=== PATIENT | female | born 1960 | race Caucasian/White ===

== ENCOUNTER 2018-05-25 04:50 | Inpatient (IN) ==
[2018-05-20 12:13] LABS: Appearance,Urine CLEAR; Bilirubin,Urine NEG (NEG); Color,Urine YELLOW; Glucose,Urine (UA) NEGATIVE (NEG); Leukocyte Esterase,Urine NEG /uL (NEG); Protein,Urine NEG (NEG); Specific Gravity,Urine 1.017 (1.000-1.035); Urine Blood NEG mg/dL (<0.03); Urobilinogen,Urine NEG (NEG)
[2018-05-20 12:54] LABS: Basophils # (Auto) 0 K/mcL (0.0-0.3); Basophils % (Auto) 0.5 % (0.0-2.0); Eosinophils # (Auto) 0.1 K/mcL (0.0-0.7); Eosinophils % (Auto) 1.2 % (0.0-7.0); Granulocytes % (Auto) 51.5 % (38.0-78.0); Lymphocytes # (Auto) 3.1 K/mcL (1.5-4.8); Lymphocytes % (Auto) 34.3 % (15.5-49.0); Mean Cell Volume 93.4 fL (80.0-100.0); Mean Corpuscular HGB Conc 33.4 g/dL (31.0-36.0); Monocytes # (Auto) 1.1 K/mcL (0.1-0.9); Monocytes % (Auto) 12.5 % (1.0-12.0); Platelet Count 263 K/mcL (140-440); RBC 4.33 M/mcL (4.00-5.20); Red Cell Distribution Width 12.4 % (11.5-14.5)
[2018-05-20 13:23] LABS: Blood Urea Nitrogen 16 mg/dl (6-20)
[2018-05-25] MEDS ORDERED: 0.9 % SODIUM CHLORIDE 9 ML, KETOROLAC 30 MG, ROPIVACAINE HCL/PF 49.5 ML, EPINEPHrine 0.... IJ SCH (06:00)
[2018-05-25] MEDS ORDERED: oxyCODONE 10 MG TAB.ER.12H PO SCH (06:00)
[2018-05-25] MEDS ORDERED: ceFAZolin 2 GM in DEXTROSE 5% IN WATER 50 ML IV SCH (06:00)
[2018-05-25] MEDS ORDERED: CELECOXIB 200 MG CAPSULE PO SCH (06:00)
[2018-05-25] MEDS ORDERED: PREGABALIN 75 MG CAPSULE PO SCH (06:00)
[2018-05-25] MEDS ORDERED: PROPOFOL 200 MG/20 ML VIAL IV ONE (07:35)
[2018-05-25] MEDS ORDERED: TRANEXAMIC ACID 1,000 MG/10 ML VIAL IV ONE (07:35)
[2018-05-25] MEDS ORDERED: DEXAMETHASONE 4 MG/ML VIAL IV ONE (07:35)
[2018-05-25] MEDS ORDERED: MIDAZOLAM 2 MG/2 ML VIAL IV ONE (07:35)
[2018-05-25] MEDS ORDERED: ROPIVACAINE HCL/PF 20 ML VIAL IJ ONE (07:35)
[2018-05-25] MEDS ORDERED: LIDOCAINE HCL/PF 100 MG/5 ML SYRINGE IV ONE (07:35)
[2018-05-25] MEDS ORDERED: ePHEDrine 50 MG/ML AMPUL IV ONE (07:35)
[2018-05-25] MEDS ORDERED: ONDANSETRON 4 MG/2 ML VIAL IV ONE (07:35)
[2018-05-25] MEDS ORDERED: GENTAMICIN SULFATE 800 MG/20 ML VIAL IR ONE (08:20)
[2018-05-25] MEDS ORDERED: METHOCARBAMOL 750 MG TABLET PO PRN (09:27)
[2018-05-25] MEDS ORDERED: MAGNESIUM HYDROXIDE 30 ML ORAL.SUSP PO PRN (09:27)
[2018-05-25] MEDS ORDERED: POLYETHYLENE GLYCOL 3350 17 GM PACKET PO PRN (09:27)
[2018-05-25] MEDS ORDERED: TRANEXAMIC ACID 1,000 MG/10 ML VIAL IV SCH (09:27)
[2018-05-25] MEDS ORDERED: BISACODYL 10 MG SUPP.RECT PR PRN (09:27)
[2018-05-25] MEDS ORDERED: ONDANSETRON 4 MG ODT TABLET SL PRN (09:27)
[2018-05-25] MEDS ORDERED: ONDANSETRON 4 MG/2 ML VIAL IV PRN ×2 (09:27→09:34)
[2018-05-25] MEDS ORDERED: FLEETS ADULT ENEMA PR PRN (09:27)
[2018-05-25] MEDS ORDERED: BENZOCAINE/MENTHOL 1 LOZENGE PO PRN (09:27)
--- NOTE | 2018-05-25 09:27 | Brief Operative Note ---
Pre-op diagnosis: right knee painful tka Post-op diagnosis: same Procedure: revision tibial component right tka Grafts/Implants: Yes Anesthesia: spinal Findings: tibial component not bound to cement, no evidence infection Complications: none Surgeon: Clay Payne Track Superintendent: Estefany Mcintosh Estimated blood loss (cc): 150 Tourniquet Time (Minutes): 71 Specimens Removed/Pathology: other (frozens and cultures) Condition: stable Disposition: PACU
[2018-05-25] MEDS ORDERED: IPRATROPIUM/ALBUTEROL 3 ML AMPUL.NEB NEB PRN ×2 (09:34→09:36)
[2018-05-25] MEDS ORDERED: NALOXONE HCL 0.4 MG/ML VIAL IV PRN (09:34)
[2018-05-25] MEDS ORDERED: METHOCARBAMOL 1,000 MG/10 ML VIAL IV PRN (09:34)
[2018-05-25] MEDS ORDERED: FLUMAZENIL 0.1 MG/ML ML IV PRN (09:34)
[2018-05-25] MEDS ORDERED: MEPERIDINE 25 MG/ML SYRINGE IV PRN (09:34)
[2018-05-25] MEDS ORDERED: LACTATED RINGERS 250 ML IV PRN (09:34)
[2018-05-25] MEDS ORDERED: fentaNYL 100 MCG/2 ML VIAL IV PRN (09:34)
[2018-05-25] MEDS ORDERED: KETOROLAC 30 MG/ML VIAL IV PRN (09:34)
[2018-05-25] MEDS ORDERED: ACETAMINOPHEN 1,000 MG/100 ML BOTTLE IV ONE (09:36)
[2018-05-25] MEDS ORDERED: LACTATED RINGERS 1,000 ML IV SCH (09:45)
--- NOTE | 2018-05-25 10:13 | XRay Report ---
CLINICAL INFORMATION: Postsurgical follow-up TECHNIQUE: Portable AP and crosstable lateral right knee COMPARISON: None. FINDINGS: Status post right total knee arthroplasty. Femoral and tibial components are in anatomic positions. There is postsurgical soft tissue and intra-articular gas IMPRESSION: Status post right knee replacement Interpreted and Authenticated by: Clay Moe 05/25/18
[2018-05-25] MEDS: KETOROLAC 15 MG/ML VIAL IV SCH ×3 (11:33→23:31)
[2018-05-25] MEDS: 0.9 % SODIUM CHLORIDE 1,000 ML IV SCH ×3 (11:36→23:35)
[2018-05-25] MEDS: 0.9 % SODIUM CHLORIDE 10 ML SYRINGE IV SCH ×2 (13:00→23:31)
--- NOTE | 2018-05-25 14:21 | Operative Note ---
DATE OF OPERATION: 05/25/2018 PREOPERATIVE DIAGNOSIS: Painful right total knee arthroplasty with possible tibial loosening. POSTOPERATIVE DIAGNOSIS: Painful right total knee arthroplasty with possible tibial loosening. PROCEDURE: Revision right total knee arthroplasty of tibial component. SURGEON: Ruben Payne M.D. TOP LIFT NAILER SURGEON: Estefany Mcintosh PA-C ANESTHESIA: Spinal with LMA assist. ESTIMATED BLOOD LOSS: 150 mL COMPLICATIONS: None noted. SPECIMENS REMOVED: Frozen section x3 to pathology, cultures x2. DRAINS: None. TOURNIQUET TIME: 71 minutes at 300 mmHg. IMPLANTS: DePuy AttZenops tibial base rotating platform size 3 revision cemented, DePuy AttZenops revision tibial sleeve Porocoat fully coated 29 mm, DePuy AttZenops revision pressfit stem 12 x 80, DePuy tibial insert rotating platform posterior stabilized size 4, 10 mm AOX, DePuy CMW 2 gentamycin bone cement 20 grams x2. INDICATIONS: The patient had a previous total knee arthroplasty. She did well initially, but then had increasing pain in the knee. She had pain around the tibia primarily and some loosening of the ligaments with instability in the knee, and radiographs confirmed some possible loosening around the tibial component. After a long discussion about treatment options, the patient elected to proceed with a revision total knee arthroplasty of the tibial component and evaluation of the remainder of the knee. The risks and benefits were discussed with the patient in detail including, but not limited to, the risks of anesthesia, problems with the heart or lungs related to anesthesia, infection, compromise or injury to the nerves and blood vessels, deep venous thrombosis, pulmonary embolism, pneumonia, continued pain after surgery, worsening pain or symptoms after surgery, swelling, loss of motion, instability, leg length discrepancy, and need for repeat surgery. DESCRIPTION OF PROCEDURE: The patient was seen in the pre-anesthesia waiting room where all questions were answered and the correct side and site were identified and marked. The patient was transferred to the operating room and administered the anesthetic and given pre-operative antibiotics. A time-out was then called. The extremity was prepped and draped, exsanguinated, and the tourniquet was inflated to 300 mmHg. A midline skin incision was then made with a standard medial parapatellar arthrotomy. I removed scar tissue in the suprapatellar pouch and infrapatellar recess. We visualized the knee. We took initial cultures from the fluid and then cultures from the tibia. I then removed the polyethylene liner and visualized this, which appeared appropriate. We repositioned the tissue around the femoral and tibial components and visualized both. Neither component was loose. I used a punch and both components were solid on exam. The femur was solid all the way through and because of the pain in the tibia I used a flexible osteotome and started to osteotome around the base of the tibia. This made it pop off easily and there was not any significant attachment of cement to the tibial component. At this point I used a cement splitter as well as multiple osteotomes to remove all the cement from the tibia. The patella was visualized and intact, normal, and left in place. I took three frozen specimens, one from the canal of the tibia; one from the bone underlying the tibial component; and the third from the soft tissues underneath the patellar tendon. These were sent and had no WBC/HPF. Once all the cement was removed, I then broached the tibia, reamed and confirmed this at our 12. We used a trial sleeve and went up to 29 mm. We used the referencing block and cut a small wafer of bone off the proximal tibia. I then placed this with a rotating platform and sized at a 10 mm thickness with excellent motion including full flexion and extension, stable to anterior and posterior drawer as well as medial and lateral varus valgus stress. I then removed all the components. We visualized and confirmed our rotation. We then placed the final Attune tibial base rotating platform size 3 cemented with a revision pressfit stem 12 x 60 as well as the tibial sleeve Porocoat fully coated. I cemented the base of the plate only. We then placed the final tibial Attune rotating platform posterior stabilized size 4, 10 mm AOX. I removed all the excess cement and irrigated completely. Irrigation with 3 liters of antibiotic saline was then performed using jet-lavage and IrriSept. We let the tourniquet down and coagulated bleeding vessels. We injected a 100 cubic centimeter volume including Ropivacaine 49.25 cubic centimeters at 5 milligrams per cubic centimeter, Ketorolac 30 milligrams, and Epinephrine 0.5 milligrams into 100 cubic centimeters volume of normal saline. We closed the retinaculum with #2 Stratafix and #0 Vicryl. We closed the subcutaneous tissue and skin in layers out to Dermabond on the skin. A sterile pressure dressing was applied. All needle and sponge counts were correct. The patient was transferred to the recovery room in stable condition. JBe:[email or web address] Job ID: [id number] Doc ID: [id number] Ruben Payne MD
[2018-05-25] MEDS: ceFAZolin 1 GM VIAL IV SCH ×2 (15:29→23:31)
[2018-05-25] MEDS: HYDROcodone/APAP 10/325MG TABLET PO PRN ×2 (15:29→21:13)
[2018-05-25] MEDS ORDERED: SENNOSIDES 1 TABLET PO SCH (21:00)
[2018-05-25] MEDS: DOCUSATE SODIUM 100 MG CAPSULE PO SCH (21:13)
[2018-05-25] MEDS: ASPIRIN 325 MG ENTERIC COATED TABLET PO SCH (21:13)
[2018-05-26] MEDS: 0.9 % SODIUM CHLORIDE 10 ML SYRINGE IV SCH (05:57)
[2018-05-26] MEDS: KETOROLAC 15 MG/ML VIAL IV SCH ×2 (05:57→12:18)
[2018-05-26] MEDS: HYDROcodone/APAP 10/325MG TABLET PO PRN ×2 (06:05→11:53)
--- NOTE | 2018-05-26 06:57 | Discharge Summary ---
Providers - Providers Patient information: Note initiated : 05/26/18 at 6:55 am Service Date, if different from initiated Date: [] Patient: Pamela José 58 y/o F admitted on 05/25/18 for Right Total Knee Arthroplasy Revision 1 Poss 2. Chief Complaint: [POD #1 s/p right TKA revision Patient doing very well today. Denies pain, numbness, tingling, calf pain, chest pain or SOB. Has no questions or concerns.] Discharge date: 05/26/18 Hospitalization Hospital course: Patient was brought into OR yesterday for right TKA revision. Procedure went on without complication. Intraoperative frozen samples returned negative for pathology. She was admitted overnight for post op care and observation. She will discharge to home today and follow up in the office in 10-14 days for post op care. Discharge diagnosis: failed knee arthroplasty Exam - Exam Incision healing: Yes Incision draining: No Incision red: No Incision swollen: No Incision inflamed: No Clean and dry: Yes Weight bearing status: as tolerated Range of motion: full foot/ankle Ortho Discharge - TKA - Patient Instructions Diet: Regular Diet Activity: weight bearing as tolerated Total Knee Protocol: For Total Knee: Start ROM MANI with stationary bike or rocking chair. Work on gaining full extension of knee. Posterior dislocation precautions provided. Hip abductor strengthening and gait training instructions provided. Apply Cryocuff as instructed. Dressing Care: May shower in 2 days, Other (dermabond) - Follow Up Plan Follow Up Appointments: Estefany Mcintosh PA-C [Physician Primer Assembler] - 06/09/18 9:00 am Disposition: Home, Self-Care Prognosis: Good Rehab Potential: Good I certify that the patient requires SNF services: No Overall status at discharge: patient is progressing back to baseline - Orders For Discharge Prescriptions: Aspirin [Ecotrin] 325 mg PO BID #60 tab.ec HYDROcodone/APAP 10/325MG [Bedford 10-325Mg] 1 - 2 tab PO Q4HP PRN #60 tab PRN Reason: Pain Level 3-6 Additional Discharge Orders: Physical Therapy at Discharge - TKA Location: None Selected Walker Location: None Selected Pending Studies Resuscitation Status Full Code Diet Regular Diet Start ThuMay 26 927 Hydrocodone Bitart/Acetaminophen (Bedford 10/325mg) 0 tab PO Q4HP PRN PRN Reason: PAIN LEVEL 3-6 Last Admin: 05/26/18 06:05 Dose: 1 tab Documented by: Admin: 05/25/18 21:13 Dose: 2 tab Documented by: Admin: 05/25/18 15:29 Dose: 2 tab Documented by: FOREST Aspirin (Ecotrin) 325 mg PO BID [facility] Last Admin: 05/25/18 21:13 Dose: 325 mg Documented by: MIROSLAVA Docusate Sodium (Colace) 100 mg PO BID [facility] Last Admin: 05/25/18 21:13 Dose: 100 mg Documented by: MIROSLAVA Ketorolac Tromethamine (Toradol) 15 mg IV Q6 [facility] Stop: 05/27/18 06:01 Last Admin: 05/26/18 05:57 Dose: 15 mg Documented by: Admin: 05/25/18 23:31 Dose: 15 mg Documented by: Admin: 05/25/18 17:44 Dose: 15 mg Documented by: Admin: 05/25/18 11:33 Dose: 15 mg Documented by: FOREST Morphine Sulfate (Morphine) 0 mg IV Q1HP PRN PRN Reason: PAIN LEVEL > 6 Last Admin: 05/25/18 11:32 Dose: 4 mg Documented by: FOREST Senna (Senokot) 2 tab PO HS [facility] Last Admin: 05/25/18 21:13 Dose: Not Given Documented by: MIROSLAVA Sodium Chloride (Saline Flush) 10 ml IV Q8 [facility] Last Admin: 05/26/18 05:57 Dose: 10 ml Documented by: Admin: 05/25/18 23:31 Dose: 10 ml Documented by: Admin: 05/25/18 13:00 Dose: Not Given Documented by: FOREST Shift Summary 05/26/18 03:39 Shift Summary by Jaja Tipton Pt slept most of the night. Has been in CPM most of the night per her request; states it doesn't hurt & actually feels good having it move. Has been up w/SBA & FWW to BR to void, QS. PO pain meds once before bed. Using AV boots & cryo cuff. Plan is for her to d/c home today. Initialized on 05/26/18 03:39 - END OF NOTE Exam Temp Pulse Resp BP Pulse Ox 98.2 F 58 L 16 115/57 96 05/26/18 04:09 05/26/18 04:09 05/26/18 04:09 05/26/18 04:09 05/26/18 04:09 - General physical appearance no distress - Cardiovascular Peripheral pulses: 2+: dorsalis pedis (L), dorsalis pedis (R), posterior tibialis (L), posterior tibialis (R) - Neurologic Present: other (motor/sensory intact)
[2018-05-26] MEDS ORDERED: LEVOTHYROXINE 50 MCG TABLET PO SCH (07:30)
[2018-05-26] MEDS ORDERED: TRIAMTERENE/HYDROCHLOROTHIAZID 1 CAP CAPSULE PO SCH (09:00)
[2018-05-26] MEDS: ASPIRIN 325 MG ENTERIC COATED TABLET PO SCH (09:12)
[2018-05-26] MEDS: DOCUSATE SODIUM 100 MG CAPSULE PO SCH (09:12)
--- NOTE | 2018-05-26 10:35 | Surgical Pathology Report ---
HISTOLOGY SPECIMEN MICROSCOPIC DIAGNOSIS SPECIMEN A - SOFT TISSUE, RIGHT KNEE, BIOPSY: -- FIBROVASCULAR TISSUE WITH CHRONIC INFLAMMATION AND PATCHY FIBROSIS. -- LESS THAN ONE NEUTROPHIL/hpf. SPECIMEN B - BONE, RIGHT TIBIA, BIOPSY: -- LAMELLAR BONE WITH ONGOING TRILINEAGE HEMATOPOIESIS. -- NO AGGREGATES OF NEUTROPHILS OR EVIDENCE OF OSTEOMYELITIS IDENTIFIED. SPECIMEN C - BONE, RIGHT TIBIAL CANAL, BIOPSY: -- LAMELLAR BONE WITH ONGOING TRILINEAGE HEMATOPOIESIS. -- NO AGGREGATES OF NEUTROPHILS OR EVIDENCE OF OSTEOMYELITIS IDENTIFIED. (ACP:mary beth) INTRAOPERATIVE CONSULTATION FROZEN SECTION DIAGNOSES ([facility]formed [facility] [place]) SPECIMEN A - KNEE, RIGHT, BIOPSY: -- LESS THAN ONE NEUTROPHIL/hpf SPECIMEN B - BONE, RIGHT TIBIA, BIOPSY: -- HEMATOPOIETIC ELEMENTS PRESENT, INCLUDING NEUTROPHILS, NO AGGREGATES OF NEUTROPHILS IDENTIFIED. SPECIMEN C - BONE, RIGHT TIBIAL CANAL, BIOPSY: -- HEMATOPOIETIC ELEMENTS, INCLUDING NEUTROPHILS PRESENT, NO AGGREGATES OF NEUTROPHILS IDENTIFIED. (ACP:adelina) GROSS DESCRIPTION Specimen A: Received fresh as right knee, is a 3.5 x 1.4 x 1.0 cm fragment. Entirely submitted for frozen section analysis and resubmitted for permanent sections as FSA. Specimen B: Received fresh as right tibia, is a fragment of bone 1.1 x 1.0 x 0.5 cm. Entirely submitted for frozen section analysis and resubmitted for permament sections as FSB, following decalcification. Specimen C: Received fresh as right ribial canal, is a fragment of bone 1.2 x 1.0 x 0.5 cm. Entirely submitted for frozen section analysis and resubmitted for permanent sections as FSC, following decalcification. (ACP:sln) Electronically Signed by: Darrick Fregoso M.D.
== END 2018-05-26 12:05 | disposition home or self-care (01) | DRG 468 ==
LOC: MEDSUR 04:50
PROVIDERS: ADMIT Orthopaedic Surgery Sports Medicine; ATTEND Orthopaedic Surgery Sports Medicine